=== PATIENT | female | born 1970 | race American Indian/Alaskan Native ===

== ENCOUNTER 2016-08-19 15:48 | Observation (INO) | payer MEDICAID ==
[2016-08-19 16:26] LABS: Basophils % (Auto) 0.9 % (0.0-1.8); Eosinophils % (Auto) 4.7 % (0.0-4.3); Hematocrit 33.6 % (30.3-42.9); Hemoglobin 11.1 gm/dl (10.1-14.3); Mean Corpuscular HGB Conc 33 % (30-34); Mean Corpuscular Hemoglobin 29 pg (28-32); Mean Corpuscular Volume 89 fl (79-97); Platelet Count 246 K/mm3 (140-440); Red Blood Count 3.78 M/mm3 (3.65-5.03); Red Cell Distribution Width 13.6 % (13.2-15.2); White Blood Count 9.1 K/mm3 (4.5-11.0)
[2016-08-19 16:39] LABS: Anion Gap 18 mmol/L; BUN/Creatinine Ratio 16.66; Blood Urea Nitrogen 10 mg/dL (7-17); Carbon Dioxide 25 mmol/L (22-30); Chloride 102.3 mmol/L (98-107); Glucose 99 mg/dL (65-100); Potassium 4.2 mmol/L (3.6-5.0); Sodium 141 mmol/L (137-145)
--- NOTE | 2016-08-19 17:55 | Emergency Department Report ---
HPI - General Chief Complaint: Chest Pain Time Seen by Provider: 08/19/16 17:26 - HPI HPI: This is a 46-year-old Afro-[place] female who drove herself and be seen , with complaint of some midsternal chest pain with some radiation towards the back and left shoulder that has been going on intermittently for months but restarted last Tuesday and has been going on consistently since, about 6 days. She says it feels like gas pains but she has tried gas medications without any relief. She denies any shortness of breath but says that breathing does sometimes exacerbate the pain. She denies any nausea, vomiting, diaphoresis. No recent travel or sick contacts at home. ED Past Medical Hx - Past Medical History Previous Medical History?: Yes Additional medical history: Left foot pain with torn ligament, Abnormal vaginal bleeding, Uterine fibroids - Surgical History Past Surgical History?: Yes Hx Appendectomy: Yes (2009) Additional Surgical History: thyroid removed - Social History Smoking Status: Never Smoker Substance Use Type: Alcohol, Non Opiate Pain, Prescribed - Medications Home Medications: Home Medications Medication Instructions Recorded Confirmed Last Taken Type No Known Home Medications [No 08/19/16 08/19/16 Unknown History Reported Home Medications] ED Review of Systems ROS: Stated complaint: CHEST PAIN Other details as noted in HPI Comment: All other systems reviewed and negative Constitutional: denies: chills, fever Eyes: denies: eye pain, eye discharge, vision change ENT: denies: ear pain, throat pain Respiratory: denies: cough, wheezing Cardiovascular: chest pain. denies: palpitations Gastrointestinal: denies: abdominal pain, nausea, diarrhea Genitourinary: denies: urgency, dysuria, discharge Musculoskeletal: back pain. denies: myalgia Skin: denies: rash, lesions Neurological: denies: headache, weakness, paresthesias Physical Exam - Physical Exam Vital Signs: Vital Signs 08/19/16 08/19/16 08/19/16 15:59 16:04 17:25 Temperature 98.3 F 98.5 F Pulse Rate 70 64 63 Respiratory 20 16 24 Rate Blood Pressure 140/88 Blood Pressure 133/92 [Right] O2 Sat by Pulse 100 100 Oximetry Physical Exam: GENERAL: The patient is well-developed well-nourished. HEENT: Normocephalic. Atraumatic. Extraocular motions are intact. Patient has moist mucous membranes. Pupils equal reactive to light bilaterally. NECK: Supple. Trachea is midline. CHEST/LUNGS: Clear to auscultation. There is no respiratory distress noted. Chest pain is not reproducible to palpation of chest wall. HEART/CARDIOVASCULAR: Regular. There is no tachycardia. There is no gallop rub or murmur. ABDOMEN: Abdomen is soft. There is some tenderness palpation to the epigastric and right upper quadrant of the abdomen. No guarding rebound tenderness. Patient has normal bowel sounds. There is no abdominal distention. Obese habitus. SKIN: Skin is warm and dry. NEURO: The patient is awake, alert, and oriented. The patient is cooperative. The patient has no focal neurologic deficits. The patient has normal speech. MUSCULOSKELETAL: There is no tenderness or deformity. There is no limitation range of motion. There is no evidence of acute injury. ED Course Vital Signs 08/19/16 08/19/16 08/19/16 15:59 16:04 17:25 Temperature 98.3 F 98.5 F Pulse Rate 70 64 63 Respiratory 20 16 24 Rate Blood Pressure 140/88 Blood Pressure 133/92 [Right] O2 Sat by Pulse 100 100 Oximetry ED Medical Decision Making - Lab Data Result diagrams: 08/19/16 16:06 08/19/16 16:06 - EKG Data -: EKG Interpreted by Me EKG shows normal: sinus rhythm, axis, intervals, QRS complexes, ST-T waves Rate: normal - EKG Data When compared to previous EKG there are: previous EKG unavailable Interpretation: normal EKG - Radiology Data Radiology results: image reviewed interpreted by me: Chest x-ray did not show any acute process. Heart is normal shape and size. No effusions. No pneumothorax. No signs of pneumonia seen. - Medical Decision Making 46-year-old female presents emergency Department with acute on chronic chest pains. Sometimes it radiates towards the abdomen and towards the shoulders. EKG does not show any signs of ST elevation ND, ischemia or dysrhythmia. Patient has had negative troponins 2 this far. There was a negative d-dimer. Chest x-ray does not show any acute process. Patient was given a couple doses of pain medication but still continues to have some discomfort. With the location of her pain also in the abdomen with some radiation towards the shoulder I had concern for possible biliary colic or gallbladder involvement. I did a ultrasound of the right upper quadrant of the abdomen that showed a gallbladder full of stones. There was no wall thickening or pericholecystic fluid but there was a positive Restrepo sign on ultrasound. On top of that there was some elevation in her transaminases. Patient may benefit from a HIDA scan. With this finding as well as her chest pain, the patient will be admitted to the hospital for further evaluation and treatment and has been accepted by the hospitalist, Dr Nuñez. - Differential Diagnosis ND, Cholelithiasis, Cholecystitis, PE Critical Care Time: No Critical care attestation.: If time is entered above; I have spent that time in minutes in the direct care of this critically ill patient, excluding procedure time. ED Disposition Clinical Impression: Biliary colic Chest pain Qualifiers: Chest pain type: unspecified Qualified Code(s): R07.9 - Chest pain, unspecified Cholelithiasis Qualifiers: Cholelithiasis location: gallbladder Cholecystitis acuity: unspecified acuity Biliary obstruction: without biliary obstruction Disposition: OP ADMITTED IP TO THIS HOSP Is pt being admited?: Yes Condition: Stable Time of Disposition: 00:40
[2016-08-19 18:35] LABS: Alanine Aminotransferase 176 units/L (7-56); Albumin 3.9 g/dL (3.9-5); Albumin/Globulin Ratio 1.4 %; Alkaline Phosphatase 113 units/L (35-129); Total Protein 6.6 g/dL (6.3-8.2)
[2016-08-19] MEDS ORDERED: NACL 0.9% 1000 ML 1,000 ML IV ONE (18:49)
[2016-08-19] MEDS ORDERED: MORPHINE IV ONE (18:49)
[2016-08-19 19:03] LABS: Bilirubin,Direct < 0.2 mg/dL (0-0.2)
--- NOTE | 2016-08-19 20:02 | Admit Criteria Form ---
Admission Criteria Documentation: GALLBLADDER OR BILE DUCT INFLAMMATION OR STONE Clinical Indications for Admission to Inpatient Care ( Place 'X' for any and all applicable criteria): Admission is indicated for patients with ANY ONE of the following(1)(2)(3)(4)(5) : [ ]I. Acute cholecystitis as indicated by ALL of the following: [ ]a) Right upper quadrant pain, mass, or tenderness [ ]b) Systemic signs of inflammation indicated by ANY ONE of the following: [ ]i) Fever [ ]ii) C-reactive protein level greater than 10 mg/L (95 nmol/L) [ ]iii) White blood cell count greater than 10,000/mm3 (10 x109/L) or less than 4000/mm3 (4 x109/L) [X]II. Inpatient admission required rather than observation care (Also use Gallbladder or Bile Duct Inflammation or Stone: Observation Care as appropriate) because of ANY ONE of the following: [ ]a) Common bile duct obstruction diagnosed [ ]b) Vomiting that is severe or persistent [X ]c) Severe pain requiring acute inpatient management [ ]d) Signs of intestinal obstruction or peritonitis [A] [ ]e) Severe electrolyte abnormalities requiring inpatient care [ ]f) Absent bowel sounds with complete ileus(8) [ ]g) Hemodynamic instability [ ]h) High fever or infection requiring inpatient admission as indicated by ANY ONE of the following (9): [ ]1) Appropriate outpatient or observation care antimicrobial Treatment. unavailable, not effective, or not feasible [ ]2) Temperature greater than 104.9 degrees F (40.5 degrees C) (oral) [ ]3) Temperature greater than 103.1 degrees F (39.5 degrees C) (oral) or less than 96.8 degrees F (36 degrees C) (rectal) that does not respond to all emergency treatment measures [ ]4) Documented bacteremia [ ]i) IV fluid to replace significant ongoing losses (greater than 3 L/m2 per day) [ ]j) Percutaneous or open drainage (eg, abscess, biliary tract) procedures [ ]k) Immediate inpatient surgery [ ]l) Other condition, treatment or monitoring requiring inpatient admission [ ]III. Acute cholangitis as indicated by ALL of the following(9)(10): [ ]a) Systemic signs of inflammation indicated by ANY ONE of the following: [ ]i) Fever [ ]ii) C-reactive protein level greater than 10 mg/L (95 nmol /L) [ ]iii) White blood cell count greater than 10,000/mm3 (10 x109/L) or less than 4000/mm3 (4 x109/L) [ ]b) Evidence of common bile duct disease indicated by ANY ONE of the following: [ ]i) Total serum bilirubin level greater than or equal to 2 mg/dL (34 micromoles/L) [ ]ii) Liver function test (alkaline phosphatase (ALP), r- glutamyltransferase (GGT), aspartate aminotransferase (AST), or alanine aminotransferase (ALT)) greater than 1.5 times the upper limit of normal[B] [ ]iii) Hepatobiliary imaging showing biliary dilatation or evidence of etiology (eg, stricture, stone, previously placed stent) Extended stay beyond goal length of stay may be needed for (1)(2)): [ ]a) Bacteremia or Hemodynamic instability [ ]b) Cholecystectomy [ ]c) Other surgical procedure(24) [ ]d) Percutaneous or endoscopic ultrasound-guided cholecystostomy The original [email or web address] content created by [email or web address] has been revised. The portions of the content which have been revised are identified through the use of italic text or in bold, and [facility] has neither reviewed nor approved the modified material. All other unmodified content is copyright [facility]. Please see references footnoted in the original [email or web address] edition 2016 Admission Criteria Met: Yes
--- NOTE | 2016-08-19 20:31 | Ultrasound Report ---
FINAL REPORT EXAM: US ABDOMEN LIMITED HISTORY: RUQ pain TECHNIQUE: Ultrasound abdomen PRIORS: None. FINDINGS: There is acoustic shadowing throughout the gallbladder which appears stone filled. The gallbladder wall is not thickened measures 0.27 centimeters there is no pericholecystic fluid seen. A positive sonographic Restrepo sign is reported. Common bile duct is 0.27 centimeters within normal limits Right kidney demonstrates normal size and echogenicity without evidence for hydronephrosis no focal abnormality seen within the visualized portion of the liver IMPRESSION: Stone filled gallbladder. No wall thickening however a positive sonographic Restrepo sign is reported. Acute cholecystitis cannot be excluded and
[2016-08-19] MEDS ORDERED: MORPHINE IV PRN (22:05)
[2016-08-19] MEDS ORDERED: NITROSTAT SL PRN (22:05)
[2016-08-19] MEDS ORDERED: SODIUM CHLORIDE FLUSH SYRINGE 10 ML IV PRN (22:05)
--- NOTE | 2016-08-19 22:15 | History and Physical Report ---
History of Present Illness Date of examination: 08/19/16 Date of admission: 08/19/16 Chief complaint: Chest pain History of present illness: This is a 46-year-old Afro-[place] female who drove herself and be seen , with complaint of some midsternal chest pain with some radiation towards the back and left shoulder that has been going on intermittently for months but restarted last Tuesday and has been going on consistently since, about 6 days. She says it feels like gas pains but she has tried gas medications without any relief. She denies any shortness of breath but says that breathing does sometimes exacerbate the pain. She denies any nausea, vomiting, diaphoresis. No recent travel or sick contacts at home. Past medical History: h/o fibroid uterus, menorrhagia, nondisplaced ankle fracture. Past surgical History: s/p appendectomy and removal of thyroid nodule Social History: Lives with family, denies any smoking, drinking and elicit drug abuse. Family History: Mother has history of diabetes mellitus, colon cancer. Uncle has history of heart disease. Review of System: Constitutional: no fever, no chills, no weight loss Ears, eyes, nose, mouth and throat: no nasal congestion, no nasal discharge, no sinus pressure, no vision change, no red eye. Neck: No neck pain or rigidity. Cardiovascular: No chest pain, no orthopnea, no palpitations, no leg swelling Respiratory: No shortness of breath, no cough, no congestion, no wheezing Gastrointestinal: no abdominal pain, no nausea, no vomiting Genitourinary : no dysuria, no hematuria Musculoskeletal: no joint swelling or muscle ache Integumentary: no rash, no pruritis Neurological: no parathesias, no numbness, no tingling Endocrine: no cold or heat intolerance, no polyuria or polydipsia Hematologic/Lymphatic: no easy bruising, no easy bleeding, no gland swelling Allergic/Immunologic: no urticaria, no angioedema. Medications and Allergies Allergies Allergy/AdvReac Type Severity Reaction Status Date / Time No Known Allergies Allergy Unverified 08/19/16 15:58 Home Medications Medication Instructions Recorded Confirmed Last Taken Type No Known Home Medications [No 08/19/16 08/19/16 Unknown History Reported Home Medications] Active Meds: Active Medications Aspirin (Ecotrin) 325 mg PO QDAY ZHANE Atorvastatin Calcium (Lipitor) 40 mg PO QHS ZHANE Docusate Sodium (Colace) 100 mg PO BID ZHANE Famotidine (Pepcid) 20 mg PO BID ZHANE Lisinopril (Zestril) 20 mg PO QDAY ZHANE Morphine Sulfate (Morphine) 2 mg IV Q5MIN PRN PRN Reason: Chest Pain Nitroglycerin (Nitrostat) 0.4 mg SL Q5M PRN PRN Reason: Chest Pain Sodium Chloride (Sodium Chloride Flush Syringe 10 Ml) 10 ml IV PRN PRN PRN Reason: LINE FLUSH Exam - Physical Exam Narrative exam: GENERAL: This is well-developed well-nourished lying on bed appeared to be in no discomfort. HEENT: Normocephalic. Atraumatic. Extraocular motions are intact. No conjunctival congestion or icterus. Patient has moist mucous membranes. External auditory canal and nares patent bilaterally. NECK: Supple. Trachea midline. No JVD, thyromagaly or lymphadenopathy. CHEST/LUNGS: Clear to auscultated bilaterally. There is no respiratory distress noted, breathing nonlabored. No wheezes crackles or rhonchi. HEART/CARDIOVASCULAR: Regular in rate and rhythm. PMI at the apex. There is no gallop rub or murmur. ABDOMEN: Abdomen is soft, nontender. Patient has normal bowel sounds. There is no abdominal distention. No organomagaly or rigidity. SKIN: There is no rash, no erythrema. There is no diaphoresis. Warm and dry. NEUROLOGY: The patient is awake, alert, and oriented. The patient is cooperative. The patient has normal speech. No focal motor deficit. MUSCULOSKELETAL: No joint effusion or tenderness. Muscle strength equal bilaterally. No muscle wasting. EXTRIMITY: No edema, cyanosis or clubbing. PSYCH: No depression or anxiety noted. Cooperative. - Constitutional Vitals: Temp Pulse Resp BP Pulse Ox 98.5 F 62 20 175/93 100 08/19/16 16:04 08/19/16 20:50 08/19/16 20:50 08/19/16 20:50 08/19/16 20:50 Results - Labs CBC & Chem 7: 08/19/16 16:06 08/19/16 16:06 Labs: Abnormal lab results 06/01/17 06/01/17 06/01/17 Range/Units 16:06 16:06 18:01 Eos % (Auto) 4.7 H (0.0-4.3) % Creatinine 0.6 L (0.7-1.2) mg/dL AST 63 H (5-40) units/L ALT 176 H (7-56) units/L Assessment and Plan Acute chest pain Hypertension uncontrolled Relative bradycardia - will admit to telemetry bed - monitor with serial CE and EKG - will place on Aspirin, statin - as needed SL NTG and iv morphin for pain - Monitor BP, add ACEI - No beta serafin as his heart rate running at low 60s - order 2D echo and stress test in the am - cardiac diet now, NPO after midnight - provide DVT Px with lovenox It took me about 42 minutes for initial care of this patient including history and physical, reviewing initial lab results and ER documents, placing admission orders, bedside counseling and coordination of care.
[2016-08-19] MEDS: ZESTRIL PO SCH (22:21)
[2016-08-19 23:10] LABS: Creatine Kinase MB 1.2 ng/mL (0.0-4.0)
[2016-08-19 23:11] LABS: Creatine Kinase 104 units/L (30-135)
[2016-08-20 06:28] LABS: Creatine Kinase MB 1.1 ng/mL (0.0-4.0)
[2016-08-20 06:29] LABS: Creatine Kinase 90 units/L (30-135)
--- NOTE | 2016-08-20 07:38 | XRay Report ---
AP CHEST: HISTORY: chest pain AP view of the chest demonstrates a normal mediastinal and cardiac contour with clear lungs and normal bony and soft tissue structures. IMPRESSION: Unremarkable AP chest.
--- NOTE | 2016-08-20 08:01 | Discharge Summary ---
Providers - Providers Date of Admission: 08/19/16 22:19 Attending physician: CITLALLI SALAZAR MD Primary care physician: PLANE TENDER Hospitalization Condition: Stable Hospital course: 46-year-old woman with a past medical history of uncontrolled hypertension who presents to the hospital complaining of chest pain. She is just was ruled out by negative troponins, she went on to have Stress test which was negative, based on her symptoms her chest pain was most likely due to GERD, she was started on a PPI Diagnosis Chest pain due to GERD HTN Disposition: DISCHARGED TO HOME OR SELFCARE Time spent for discharge: 35 minutes Core Measure Documentation - Palliative Care Palliative Care/ Comfort Measures: Not Applicable - Core Measures Any of the following diagnoses?: none Exam - Constitutional Vitals: Temp Pulse Resp BP Pulse Ox 97.5 F L 90 19 122/62 92 08/20/16 05:55 08/20/16 05:55 08/20/16 05:55 08/20/16 05:55 08/20/16 05:55 General appearance: Present: no acute distress, well-nourished - EENT Eyes: Present: PERRL ENT: hearing intact, clear oral mucosa - Neck Neck: Present: supple, normal ROM - Respiratory Respiratory effort: normal Respiratory: bilateral: CTA - Cardiovascular Heart Sounds: Present: S1 & S2. Absent: rub, click - Extremities Extremities: pulses symmetrical, No edema Peripheral Pulses: within normal limits - Abdominal General gastrointestinal: Present: soft, non-tender, non-distended, normal bowel sounds Female genitourinary: Present: normal - Integumentary Integumentary: Present: clear, warm, dry - Musculoskeletal Musculoskeletal: gait normal, strength equal bilaterally - Psychiatric Psychiatric: appropriate mood/affect, intact judgment & insight - Neurologic Neurologic: CNII-XII intact, moves all extremities Plan Follow up with: [facility] [Provider Group] - 7 Days PRIMARY CARE, [Primary Care Provider] - 3-5 Days Prescriptions: Aspirin EC [Aspirin Enteric Coated TAB] 81 mg PO QDAY #30 tablet. Lisinopril [Zestril TAB] 20 mg PO QDAY #30 tablet Pantoprazole [Protonix] 40 mg PO QDAY #30 tablet
[2016-08-20] MEDS ORDERED: LEXISCAN IV ONE ×2 (08:38→08:43)
[2016-08-20] MEDS ORDERED: PEPCID PO SCH (10:00)
[2016-08-20] MEDS ORDERED: ECOTRIN PO SCH (10:00)
[2016-08-20] MEDS ORDERED: COLACE PO SCH (10:00)
[2016-08-20] MEDS: ZESTRIL PO SCH (11:48)
[2016-08-20] MEDS ORDERED: TYLENOL PO ONE (13:00)
[2016-08-20 17:49] VITALS: BP 137/81
[2016-08-20] MEDS ORDERED: LOVENOX SUB-Q SCH (22:00)
--- NOTE | 2016-08-20 22:50 | Treadmill Report ---
INDICATION: Chest pain. ORDERING PHYSICIAN: . FINDINGS: There is no scintigraphic evidence of myocardial ischemia. The left ventricle is normal in size and systolic function. Left ventricular ejection fraction is measured at 54%. Normal wall motion and wall thickening is noted on gated imaging. CONCLUSION: Normal perfusion scan. JOB# [id number] JULIÁN/STELLA
== END 2016-08-20 18:10 | disposition home or self-care (01) ==
LOC: ED 15:48 → 4A 22:19
PROVIDERS: ADMIT Internal Medicine; ATTEND Internal Medicine
DX: R07.89 Other chest pain (principal); K21.9 Gastro-esophageal reflux disease without esophagitis; I10 Essential (primary) hypertension; R00.1 Bradycardia, unspecified; Z83.3 Family history of diabetes mellitus; Z80.0 Family history of malignant neoplasm of digestive organs; Z82.49 Family history of ischemic heart disease and other diseases of the circulatory system; Z90.49 Acquired absence of other specified parts of digestive tract
CPT/HCPCS: 36415; 71010; 76705; 78452; 80048; 80061; 80074; 82550; 82553; 84443; 84484; 85025; 85379; 85610; 93005; 93010; 93017; 93306; 96361; 96374; 96375; 99285; A9502; G0378; J2270; J2785; J7030

== ENCOUNTER 2021-05-22 15:07 | Emergency (ER) | payer MEDICAID ==
[2021-05-22] MEDS ORDERED: ASPIRIN 325 MG TAB PO ONE (20:25)
[2021-05-22] MEDS ORDERED: HYDROcodone/ACETAMINOPHEN 5-325 MG TAB PO ONE (20:26)
--- NOTE | 2021-05-22 20:51 | XRay Report ---
CHEST 2 VIEWS INDICATION / CLINICAL INFORMATION: Chest Pain. COMPARISON: 08/19/2016 FINDINGS: SUPPORT DEVICES: None. HEART / MEDIASTINUM: No significant abnormality. LUNGS / PLEURA: No significant pulmonary or pleural abnormality. No pneumothorax. ADDITIONAL FINDINGS: No significant additional findings. IMPRESSION: 1. No acute findings. Signer Name: Manolo Thomas MD Signed: 05/22/2021 8:47 PM Workstation Name: [id number]
[2021-05-22 21:12] LABS: Basophils % (Auto) 0.4 % (0.0-1.8); Eosinophils # (Auto) 0.2 K/mm3 (0.0-0.4); Hematocrit 36.5 % (30.3-42.9); Hemoglobin 11.9 gm/dl (10.1-14.3); Lymphocytes # (Auto) 3.6 K/mm3 (1.2-5.4); Lymphocytes % (Auto) 47.6 % (13.4-35.0); Mean Corpuscular HGB Conc 33 % (30-34); Mean Corpuscular Volume 83 fl (79-97); Monocytes # (Auto) 0.6 K/mm3 (0.0-0.8); Monocytes % (Auto) 8.1 % (0.0-7.3); Platelet Count 208 K/mm3 (140-440); Red Blood Count 4.39 M/mm3 (3.65-5.03); Red Cell Distribution Width 13.5 % (13.2-15.2)
[2021-05-22 21:29] LABS: INR 1.01 (0.87-1.13)
[2021-05-22 21:36] LABS: Alanine Aminotransferase 18 units/L (7-56); Albumin 4.5 g/dL (3.9-5); Blood Urea Nitrogen 10 mg/dL (7-17); Calcium 9.9 mg/dL (8.4-10.2); Hemolysis Index 3
[2021-05-22 21:56] LABS: BUN/Creatinine Ratio 25
--- NOTE | 2021-05-22 22:19 | Emergency Department Report ---
ED Chest Pain HPI - General Chief Complaint: Chest Pain Stated Complaint: CHEST PAINS Time Seen by Provider: 05/22/21 20:20 Source: patient Mode of arrival: Ambulatory Limitations: No Limitations - History of Present Illness Initial Comments: chest pain since tuesday , worse with mvement going to her back on left side no sob no robin no fever nor walt Complaint: chest pain -: Sudden Pain Location: substernal Pain Radiation: none Severity scale (0 -10): 6 Quality: sharp Consistency: intermittent Improves With: nothing - Related Data Previous Rx's Medication Instructions Recorded Last Taken Type Aspirin EC [Halfprin EC] 81 mg PO QDAY #30 tablet. 08/20/16 Unknown Rx Pantoprazole [Protonix] 40 mg PO QDAY #30 tablet 08/20/16 Unknown Rx lisinopriL [Zestril TAB] 20 mg PO QDAY #30 tablet 08/20/16 Unknown Rx HYDROcodone/ACETAMINOPHEN 1 each PO DAILY PRN #12 05/22/21 Unknown Rx [Hydrocodone-Acetamin 5-300 mg] Allergies Allergy/AdvReac Type Severity Reaction Status Date / Time Penicillins Allergy Swelling Verified 05/22/21 16:00 Heart Score - HEART Score History: Slightly suspicious EKG: Normal Age: 45-65 Risk factors: No known risk factors Troponin: < normal limit HEART Score: 1 - EKG Read Time Time EKG Completed: 15:13 EKG Read Time: 15:13 ED Review of Systems ROS: Stated complaint: CHEST PAINS Other details as noted in HPI Constitutional: denies: chills, fever Eyes: denies: eye pain, eye discharge, vision change ENT: denies: ear pain, throat pain Respiratory: denies: cough, shortness of breath, wheezing Cardiovascular: denies: chest pain, palpitations Endocrine: no symptoms reported Gastrointestinal: denies: abdominal pain, nausea, diarrhea Genitourinary: denies: urgency, dysuria, discharge Musculoskeletal: denies: back pain, joint swelling, arthralgia Skin: denies: rash, lesions Neurological: denies: headache, weakness, paresthesias Psychiatric: denies: anxiety, depression Hematological/Lymphatic: denies: easy bleeding, easy bruising ED Past Medical Hx - Past Medical History Hx Congestive Heart Failure: No Hx Diabetes: No Hx Asthma: No Hx COPD: No Additional medical history: Left foot pain with torn ligament, Abnormal vaginal bleeding, Uterine fibroids - Surgical History Hx Appendectomy: Yes (2009) Additional Surgical History: thyroid removed - Social History Smoking Status: Never Smoker Substance Use Type: Alcohol, Non Opiate Pain, Prescribed - Medications Home Medications: Home Medications Medication Instructions Recorded Confirmed Last Taken Type Aspirin EC [Halfprin EC] 81 mg PO QDAY #30 tablet. 08/20/16 Unknown Rx Pantoprazole [Protonix] 40 mg PO QDAY #30 tablet 08/20/16 Unknown Rx lisinopriL [Zestril TAB] 20 mg PO QDAY #30 tablet 08/20/16 Unknown Rx HYDROcodone/ACETAMINOPHEN 1 each PO DAILY PRN #12 05/22/21 Unknown Rx [Hydrocodone-Acetamin 5-300 mg] ED Physical Exam - General Limitations: No Limitations ED Course Vital Signs 05/22/21 05/22/21 16:00 20:32 Temperature 98.4 F Pulse Rate 75 Respiratory 18 14 Rate Blood Pressure 149/83 [Right] O2 Sat by Pulse 100 Oximetry - Reevaluation(s) Reevaluation #1: 05/22/21 22:15 work up ngetaive , ekg normal trop negative, vss, meds given feels better, seems musculoskeletal ED Medical Decision Making - Lab Data Result diagrams: 05/22/21 20:54 05/22/21 20:54 Critical care attestation.: If time is entered above; I have spent that time in minutes in the direct care of this critically ill patient, excluding procedure time. ED Disposition Clinical Impression: Chest pain Disposition: HOME / SELF CARE / HOMELESS Is pt being admited?: No Does the pt Need Aspirin: No Condition: Stable Instructions: Nonspecific Chest Pain, Adult, Nonspecific Chest Pain, Adult, [id number], Chest Wall Pain, [id number] Referrals: MAHI KHOURY MD [Staff Physician] - 3-5 Days
[2021-05-22 22:45] VITALS: BP 149/87
--- NOTE | 2021-05-24 11:45 | Electrocardiograph Report ---
[facility] Test Date: 2021-05-22 Test Time: 15:13:59 Pat Name: VALENTIN KENNY Department: Room: Gender: F [employer]rapeutic Recreation Specialist: DOUG : 1970 Requested By: LI PHILLIPS Order Number: [id number] Reading MD: Satinder Sweeney Measurements Intervals [place] Rate: 92 P: 41 FL: 167 QRS: 25 QRSD: 83 T: 44 QT: 374 QTc: 465 Interpretive Statements Sinus rhythm Borderline ST elevation, probable early repolarization No previous ECG available for comparison Electronically Signed On 05-24-2021 11:45:07 EST by Satinder Sweeney
== END 2021-05-23 22:45 | disposition left against medical advice (07) ==
LOC: ED 15:07
DX: R07.89 Other chest pain (principal); Z88.0 Allergy status to penicillin; Z79.82 Long term (current) use of aspirin; Z79.899 Other long term (current) drug therapy
CPT/HCPCS: 36415; 71046; 80053; 83690; 84484; 85025; 85610; 93005; 93010; 99283